=== PATIENT | male | born 1985 ===

== ENCOUNTER 2017-10-17 18:10 | Emergency (ER) | payer SELFPAY ==
[2017-10-17] MEDS ORDERED: Ibuprofen TAB* 400 MG PO ONE (18:34)
--- NOTE | 2017-10-17 19:18 | ED ---
Upper Extremity Pain - HPI Summary HPI Summary: Pt here w/ Rt hand pain, swelling and bruising since falling onto concrete and catching himself with his hand earlier today (essentially, punched concrete with his body weight behind him). Denies numbness, tingling, weakness but has pain w/ movement of phalanges and burning pain into forearm with movement of wrist. Has not had anything for pain "I don't like to take stuff". - History of Current Complaint Chief Complaint: UCUpperExtremity Stated Complaint: SWOLLEN HAND Time Seen by Provider: 10/17/17 19:15 Hx Obtained From: Patient - Allergies/Home Medications Allergies/Adverse Reactions: Allergies Allergy/AdvReac Type Severity Reaction Status Date / Time No Known Allergies Allergy Verified 10/17/17 18:14 Home Medications: Home Medications NK [No Home Medications Reported] 10/17/17 [History Confirmed 10/17/17] PMH/Surg Hx/FS Hx/Imm Hx Previously Healthy: Yes Endocrine/Hematology History: Denies: Hx Anticoagulant Therapy, Hx Blood Disorders Cardiovascular History: Denies: Other Cardiovascular Problems/Disorders Respiratory History: Reports: Other Respiratory Problems/Disorders - TOBACCO USE GI History: Denies: Other GI Disorders Sensory History: Denies: Hx Contacts or Glasses, Hx Hearing Aid Opthamlomology History: Denies: Hx Contacts or Glasses - Surgical History Hx Anesthesia Reactions: - N/A Infectious Disease History: No Infectious Disease History: Denies: Hx Clostridium Difficile, Hx Hepatitis, Hx Human Immunodeficiency Virus (HIV), Hx of Known/Suspected MRSA, Hx Shingles, Hx Tuberculosis, Hx Known/ Suspected VRE, Hx Known/Suspected VRSA, History Other Infectious Disease, Traveled Outside the [place] in Last 30 Days - Family History Known Family History: Positive: None - Social History Occupation: Employed Full-time Lives: With Family Alcohol Use: None Hx Substance Use: No Substance Use Type: Reports: None Hx Tobacco Use: Yes Smoking Status (MU): Current Every Day Smoker Review of Systems Positive: Arthralgia, Myalgia, Decreased ROM, Edema Positive: Bruising Neurological: Negative Psychological: Normal All Other Systems Reviewed And Are Negative: Yes Physical Exam Triage Information Reviewed: Yes Vital Signs On Initial Exam: Initial Vitals Temp Pulse Resp BP Pulse Ox 99 F 90 16 135/86 100 10/17/17 18:15 10/17/17 18:15 10/17/17 18:15 10/17/17 18:15 10/17/17 18:15 Vital Signs Reviewed: Yes Appearance: Positive: Well-Appearing, Well-Nourished, Pain Distress - mild Skin: Positive: Warm, Dry - edema w/ overlying ecchymosis over 4/5th MC on Rt - no skin breakdown Head/Face: Positive: Normal Head/Face Inspection Eyes: Positive: EOMI ENT: Positive: Hearing grossly normal Respiratory/Lung Sounds: Positive: Breath Sounds Present Cardiovascular: Positive: Pulses are Symmetrical in both Upper and Lower Extremities Musculoskeletal: Positive: Strength/ROM Intact - wrist, eblow, shoulder and phalanges can adduct/abduct; shoulder, humerus, elbow, forearm and carpals NTTP , Limited @ - 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 Neurological: Positive: Normal, Sensory/Motor Intact, Alert, Oriented to Person Place, Time, CN Intact II-III Psychiatric: Positive: Normal Procedures - Splinting Location: Rt hand Hand-Made Type: fiberglass Splint: ulnar - gutter Pre-Proc Neuro Vasc Exam: normal Post-Proc Neuro Vasc Exam: normal Diagnostics - Vital Signs Vital Signs Temp Pulse Resp BP Pulse Ox 10/17/17 18:15 99 F 90 16 135/86 100 - Laboratory Diagnostic Studies Comment: Rt hand XR: report and image reveal angulated distal 5th MC Lab Statement: Any lab studies that have been ordered have been reviewed, and results considered in the medical decision making process. Course/Dx - Diagnoses Provider Diagnoses: Fracture of fifth metacarpal bone of right hand - Physician Notifications Discussed Care of Patient With: Maged Barillas Discharge - Discharge Plan Condition: Stable Disposition: HOME Patient Education Materials: Hand Fracture (ED), Splint Care (ED) Forms: *Work Release Referrals: Maged Davison MD [Medical Doctor] - Additional Instructions: Rest, ice, elevate Keep splint clean, dry and in place until seen by orthopedics - call tomorrow to schedule an appointment. Contact information included here. You may take ibuprofen with food for pain/swelling. *If you develop numbness, tingling, weakness or change in color of you hand, loosen ROWDY wrap and elevate for 20 minutes - if symptoms persist, go to ED
--- NOTE | 2017-10-17 19:19 | RAD ---
INDICATION: Traumatic fracture right hand COMPARISON: None TECHNIQUE: AP, lateral, and oblique views were obtained. FINDINGS: There is a comminuted, angulated, distal fifth metacarpal fracture. There is associated soft tissue swelling. No additional fractures are evident. IMPRESSION: ANGULATED FIFTH METACARPAL FRACTURE.
[2017-10-17 20:17] VITALS: BP 149/86
== END 2017-10-17 20:25 | disposition home or self-care (01) ==
LOC: UCEAST 18:10
DX: S62.316A Displaced fracture of base of fifth metacarpal bone, right hand, initial encounter for closed fracture (principal); W19.XXXA Unspecified fall, initial encounter; Y93.9 Activity, unspecified; Y92.9 Unspecified place or not applicable; Y99.9 Unspecified external cause status; Z72.0 Tobacco use
CPT/HCPCS: 99202; A9270-GY; G0463